=== PATIENT | male | born 1995 | race Asian ===

== ENCOUNTER 2017-08-30 13:38 | Emergency (ER) | payer OTHER ==
[2017-08-30] MEDS: IV NORMAL SALINE 1000ML BAG 1,000 ML IV (14:35)
[2017-08-30] MEDS: ONDANSETRON PF 4 MG/2 ML VIAL. IV (14:35)
[2017-08-30 14:39] LABS: ADD MAN DIFF? NO
[2017-08-30 14:46] LABS: BASO % 0 % (0-3); EOS # 0.1 x10^3/uL (0.0-0.7); EOS % 1 % (0-3); HEMATOCRIT 39.5 % (39.0-53.0); HEMOGLOBIN 13.6 g/dL (13.0-17.5); LYMPH # 1.5 x10^3/uL (1.0-4.8); LYMPH % 25 % (24-48); MEAN CORPUSCULAR HEMOGLOBIN 28 pg (25-35); MEAN CORPUSCULAR HGB CONC 35 g/dL (31-37); MEAN CORPUSCULAR VOLUME 80 fL (79-100); MONO # 0.4 x10^3/uL (0.0-1.1); MONO % 6 % (0-9); NEUT # 4.2 x10^3uL (1.8-7.7); NEUT % 68 % (31-73); PLATELET COUNT 181 x10^3/uL (140-400); RED BLOOD COUNT 4.96 x10^6/uL (4.30-5.70); RED CELL DISTRIBUTION WIDTH 13.5 % (11.5-14.5); WHITE BLOOD COUNT 6.2 x10^3/uL (4.0-11.0)
[2017-08-30 14:50] LABS: ANION GAP 11 (6-14); BLOOD UREA NITROGEN 24 mg/dL (8-26); BUN/CREATININE RATIO 18 (6-20); CALCIUM 9.4 mg/dL (8.5-10.1); CARBON DIOXIDE 25 mmol/L (21-32); CHLORIDE 111 mmol/L (98-107); CREATININE 1.3 mg/dL (0.7-1.3); GFR 67.8; GLUCOSE 294 mg/dL (70-99); POTASSIUM 3.7 mmol/L (3.5-5.1); SODIUM 147 mmol/L (136-145)
[2017-08-30 14:53] LABS: ETHANOL < 10 mg/dL (0-10)
[2017-08-30 14:58] LABS: LACTIC ACID 1.6 mmol/L (0.4-2.0)
[2017-08-30 15:04] LABS: ALBUMIN 3.7 g/dL (3.4-5.0); ALBUMIN/GLOBULIN RATIO 0.9 (1.0-1.7); ALK PHOS 114 U/L (46-116); ALT (SGPT) 60 U/L (16-63); AST (SGOT) 66 U/L (15-37); TOTAL BILIRUBIN 0.6 mg/dL (0.2-1.0); TOTAL PROTEIN 7.8 g/dL (6.4-8.2)
== END 2017-08-30 16:15 | disposition home or self-care (01) ==
LOC: ER 13:38
DX: S13.4XXA Sprain of ligaments of cervical spine, initial encounter (principal); S00.93XA Contusion of unspecified part of head, initial encounter; E10.65 Type 1 diabetes mellitus with hyperglycemia; R11.10 Vomiting, unspecified; V43.52XA Car driver injured in collision with other type car in traffic accident, initial encounter; Y93.I9 Activity, other involving external motion; Y92.410 Unspecified street and highway as the place of occurrence of the external cause; Y99.8 Other external cause status
CPT/HCPCS: 36415; 70450; 72125; 80053; 83605; 85025; 96361; 96374; 99283; 99285-25; G0480; J2405; J7030